=== PATIENT | male | born 1975 | race Caucasian/White ===

== ENCOUNTER 2018-01-13 16:44 | Inpatient (IN) | payer OTHER ==
[~2018-01-13] VITALS: Ht 170.2 cm; Wt 84.4 kg
[2018-01-13] MEDS ORDERED: LIDOCAINE 2% (UROJET) 10 ML JELLY MM ONE ×2 (17:00→17:05)
[2018-01-13] MEDS ORDERED: IV NORMAL SALINE 1000 ML BAG IV ONE (17:15)
[2018-01-13] MEDS ORDERED: LORAZEPAM 0.5 MG TABLET PO ONE (17:15)
[2018-01-13] MEDS ORDERED: LORAZEPAM 1 MG TABLET ONE (17:17)
[2018-01-13 17:23] LABS: *BILIRUBIN,URIN NEGATIVE (NEGATIVE); *BLOOD, URINE 2+ (NEGATIVE); *COLOR,URINE YELLOW (YELLOW); *KETONES,URINE NEGATIVE (NEGATIVE); *PROTEIN,URINE 2+ (NEGATIVE); LEUKOCYTE ESTERASE ,URINE NEGATIVE (NEGATIVE); NITRITE, URINE NEGATIVE (NEGATIVE); PH,URINE 7.5 (5.0-8.0); UGLUCOSE NEGATIVE (NEGATIVE)
[2018-01-13 17:24] LABS: BASOPHILS # (AUTO) 0.1 K/uL (0.0-8.0); BASOPHILS % (AUTO) 1.2 % (0.0-2.0); EOSINOPHILS # (AUTO) 0.1 K/uL (0.0-0.7); EOSINOPHILS % (AUTO) 0.6 % (0.0-7.0); HEMATOCRIT 50.3 % (36.7-47.1); HEMOGLOBIN 17.4 g/dL (12.5-16.3); LYMPHOCYTES # (AUTO) 2.3 K/uL (20.0-40.0); LYMPHOCYTES % (AUTO) 23.3 % (20.5-51.5); MEAN CORPUSCULAR HEMOGLOBIN 32.5 uug (23.8-33.4); MEAN CORPUSCULAR HGB CONC 35 g/dL (32.5-36.3); MEAN CORPUSCULAR VOLUME 93.9 fL (73.0-96.2); MONOCYTES # (AUTO) 0.7 K/uL (2.0-10.0); MONOCYTES % (AUTO) 7.4 % (0.0-11.0); NEUTROPHILS # (AUTO) 6.7 K/uL (1.8-8.9); NEUTROPHILS % (AUTO) 67.5 % (38.5-71.5); PLATELET COUNT (AUTO) 216 K/uL (152-348); RED BLOOD CELL COUNT(AUTO) 5.36 MIL/uL (4.06-5.63); WHITE BLOOD COUNT (AUTO) 9.9 K/uL (3.6-10.2)
[2018-01-13 17:31] LABS: CREATININE 1.1 mg/dL (0.6-1.3); POTASSIUM 3.6 mmol/L (3.5-5.1)
[2018-01-13 17:33] LABS: *CLARITY,URINE SLIGHTLY HAZY (CLEAR)
[2018-01-13 17:35] LABS: MUCUS,URINE MODERATE /LPF (0-FEW); RBC,URINE 50-80 /HPF (0-3); WBC,URINE 0-3 /HPF (0-3)
[2018-01-13] MEDS ORDERED: KETOROLAC TROMETHAMINE 30 MG INJ ONE (17:42)
[2018-01-13] MEDS ORDERED: ONDANSETRON 4 MG/2 ML VIAL ONE (17:42)
[2018-01-13] MEDS ORDERED: KETOROLAC TROMETHAMINE 30 MG INJ IVP ONE (17:45)
[2018-01-13] MEDS ORDERED: ONDANSETRON 4 MG/2 ML VIAL IV ONE (17:45)
[2018-01-13 17:47] LABS: BILIRUBIN,TOTAL 0.4 mg/dL (0.2-1.0); TOTAL PROTEIN, SERUM 7.7 g/dL (6.4-8.2)
[2018-01-13] MEDS ORDERED: MORPHINE SULFATE 4 MG/1 ML DISP.SYRIN ONE (18:14)
[2018-01-13] MEDS ORDERED: MORPHINE SULFATE 4 MG/1 ML DISP.SYRIN IV ONE (18:15)
--- NOTE | 2018-01-13 19:10 | NUR ---
REPORT TAKEN FROM HYACINTH FLEMING. ASSUMING PT CARE AT THIS TIME.
[2018-01-13] MEDS ORDERED: LORAZEPAM 2 MG/1 ML VIAL IV ONE ×2 (19:30→22:45)
[2018-01-13] MEDS ORDERED: IV NS 1000 ML 1,000 ML IV ONE (19:30)
[2018-01-13] MEDS ORDERED: LORAZEPAM 2 MG/1 ML VIAL ONE ×2 (19:36→22:14)
--- NOTE | 2018-01-13 19:40 | NUR ---
PT TAKEN TO RADIOLOGY VIA GURNEY. NO DISTRESS NOTED.
--- NOTE | 2018-01-13 20:16 | NUR ---
PT BACK IN ROOM FROM CT. NO ACUTE EVENTS.
--- NOTE | 2018-01-13 20:36 | NUR ---
PT RESTING IN BED W/ EYES CLOSED. NO ACUTE DISTRESS NOTED.
--- NOTE | 2018-01-13 21:22 | NUR ---
PT C/O INCREASED PAID. MD AWARE. PT CURRENTLY DOZING INTERMITTENTLY, AND REQUIRED SUPPLEMENTAL O2 FOR DESATURATION TO 90% WHILE SLEEPING.
--- NOTE | 2018-01-13 22:10 | NUR ---
AMOS DISCONTINUED PER DR LOCKHART.
--- NOTE | 2018-01-13 22:19 | NUR ---
DR LOCKHART AT BEDSIDE FOR EVAL.
--- NOTE | 2018-01-13 22:37 | NUR ---
REPORT GIVEN TO HYACINTH SMITH.
[2018-01-13] MEDS ORDERED: ACETAMINOPHEN 325 MG TABLET PO PRN (23:15)
[2018-01-13] MEDS ORDERED: MAGNESIUM HYDROXIDE 30 ML LIQUID UDC PO PRN (23:15)
[2018-01-13] MEDS ORDERED: Z GUARD REMEDY PASTE 57 GM TUBE TOP PRN (23:15)
--- NOTE | 2018-01-13 23:23 | NUR ---
Pt. admitted to TELE, under care of Dr. LOCKHART Belongs List completed
--- NOTE | 2018-01-13 23:27 | NUR ---
PT ALERT AWAKE IN NO ACUTE DISTRESS. BIT TAPPER SHOWING SINUS TACHY AT 107 BPM. ABLE TO MAKE NEEDS KNOWN. C/O PAIN 9/10 TO RIGHT ABDOMEN/LOW BACK AREA WITH SOME NAUSEA. PT TO START ON IV FLUIDS PER MD. CURRENTLY ON 2L/MIN VIA N/C. BP 133/80 P 107 R 20 TEMP 98.3 PAIN 9 O2 96%. WILL CONTINUE TO MONITOR. CALL LIGHT WITHIN REACH.
[2018-01-13 23:28] VITALS: BP 133/80
[2018-01-13] MEDS ORDERED: METOPROLOL SUCCINATE XL 50 MG TAB.SR.24H PO ONE (23:30)
[2018-01-14] MEDS: HYDROCODONE/APAP 5-325MG TABLET PO PRN ×2 (00:08→08:41)
[2018-01-14] MEDS: ONDANSETRON 4 MG/2 ML VIAL IV PRN ×3 (00:09→21:49)
[2018-01-14] MEDS: IV 1/2NS 1000 ML 1,000 ML IV PRN ×4 (00:27→22:41)
[2018-01-14] MEDS ORDERED: FOLIC ACID 5 MG/ML VIAL IV ONE (00:36)
[2018-01-14] MEDS ORDERED: THIAMINE HCL 200 MG/2 ML VIAL ONE (00:36)
[2018-01-14] MEDS: LORAZEPAM 0.5 MG TABLET PO PRN ×3 (00:59→14:23)
[2018-01-14] MEDS: ZOLPIDEM 5 MG TABLET PO PRN ×2 (00:59→22:46)
[2018-01-14] MEDS: FOLIC ACID 1 MG in IV DEXTROSE 5% 50 ML IV SCH ×2 (01:01→23:16)
[2018-01-14] MEDS: THIAMINE HCL INJ 100 MG in IV DEXTROSE 5% 50 ML IV SCH ×2 (01:35→22:41)
[2018-01-14 03:53] VITALS: BP 130/65
--- NOTE | 2018-01-14 06:00 | NUR ---
PT IN ROOM ASLEEP MAINTAINING IV FLUIDS. DENIES ANY PAIN OR DISCOMFORT AT THIS TIME. CARBONATION TESTER SINUS RHYTHM. OXYGEN MAINTAINED AT 2L/MIN. V/S ARE WNL. WILL CONTINUE TO MONITOR. CALL LIGHT AND URINAL WITHIN REACH.
[2018-01-14 06:44] LABS: BASOPHILS # (AUTO) 0.1 K/uL (0.0-8.0); BASOPHILS % (AUTO) 0.8 % (0.0-2.0); EOSINOPHILS # (AUTO) 0.1 K/uL (0.0-0.7); EOSINOPHILS % (AUTO) 1.7 % (0.0-7.0); HEMATOCRIT 44.4 % (36.7-47.1); HEMOGLOBIN 15.2 g/dL (12.5-16.3); LYMPHOCYTES # (AUTO) 1.8 K/uL (20.0-40.0); MEAN CORPUSCULAR HEMOGLOBIN 32.6 uug (23.8-33.4); MEAN CORPUSCULAR HGB CONC 34 g/dL (32.5-36.3); MEAN CORPUSCULAR VOLUME 94.8 fL (73.0-96.2); MONOCYTES # (AUTO) 0.5 K/uL (2.0-10.0); MONOCYTES % (AUTO) 8.5 % (0.0-11.0); NEUTROPHILS # (AUTO) 3.8 K/uL (1.8-8.9); PLATELET COUNT (AUTO) 172 K/uL (152-348); RED BLOOD CELL COUNT(AUTO) 4.68 MIL/uL (4.06-5.63); WHITE BLOOD COUNT (AUTO) 6.3 K/uL (3.6-10.2)
[2018-01-14 07:01] LABS: BILIRUBIN,TOTAL 0.6 mg/dL (0.2-1.0); PHOSPHOROUS 3.1 mg/dL (2.5-4.9); POTASSIUM 3.5 mmol/L (3.5-5.1); TOTAL PROTEIN, SERUM 6.3 g/dL (6.4-8.2)
--- NOTE | 2018-01-14 08:00 | NUR ---
AWAKE ALERT COOPERATE WELL NO ACUTE DISTRESS C/O OF RT FLANK PAIN AND NAUSEA THI AM MED PRN GIVEN ORDER ,RESTING WELL WITH CALL LIGHT IN REACH
--- NOTE | 2018-01-14 09:00 | NUR ---
DR LOCKHART SEEN PATIENT AND LAB RESULT AND ORDER NEW PAIN MED FOR HIM
[2018-01-14] MEDS ORDERED: KETOROLAC TROMETHAMINE 30 MG INJ IM PRN (09:15)
[2018-01-14] MEDS: METOPROLOL SUCCINATE XL 50 MG TAB.SR.24H PO SCH (09:28)
[2018-01-14] MEDS ORDERED: KETOROLAC TROMETHAMINE 30 MG INJ IVP PRN (10:15)
[2018-01-14 11:07] VITALS: BP 151/85
[2018-01-14] MEDS ORDERED: [UNRECOGNIZED DRUG - OTHER] PO (12:46)
[2018-01-14] MEDS ORDERED: GABA800T2 PO (12:46)
[2018-01-14] MEDS ORDERED: BUPR300T52 PO (12:46)
--- NOTE | 2018-01-14 14:00 | NUR ---
DR LOCKHART WAS CALL REGARDING PATIENT REQUEST MORE OFTEN OF ATIVAN FOR ANXIETY AND NEW ORDER IN CHART
[2018-01-14 15:43] VITALS: BP 142/69
[2018-01-14] MEDS: KETOROLAC TROMETHAMINE 30 MG INJ IVP PRN ×2 (15:43→21:49)
--- NOTE | 2018-01-14 17:30 | NUR ---
STABLE HEMODYNAMIC STATUS NO ACUTE DISTRESS ,PAIN AND ANXIETY UNDER CONTROL SAFETY MEASURE PROVIDED CALL LIGHT IN REACH
--- NOTE | 2018-01-14 19:20 | NUR ---
RECEIVED PT SLEEPING IN BED. NO S/S OF DISTRESS AT THIS TIME. IVF 1/2NS INFUSING AT 150 CC/HR.
[2018-01-14] MEDS ORDERED: LEVO137T24 PO (19:37)
[2018-01-14 20:00] VITALS: BP 145/73
[2018-01-14] MEDS: LORAZEPAM 1 MG TABLET PO PRN (20:00)
--- NOTE | 2018-01-14 21:35 | NUR ---
Received patient from ingredient scaler nurse at 2135. Patient in stable condition with no acute distress. Denies SOB. Patient complaining of lower back pain 02/06. Will administer pain med per MD order & re assess. Pertinent assessment completed. IV fluids running through right forearm. No s/s of infiltration or swelling at IV site. Call light within reach. Will continue to monitor.
[2018-01-15] MEDS: KETOROLAC TROMETHAMINE 30 MG INJ IVP PRN ×4 (04:23→23:20)
[2018-01-15 04:25] VITALS: BP 115/59
[2018-01-15] MEDS: LORAZEPAM 1 MG TABLET PO PRN ×4 (05:45→20:23)
--- NOTE | 2018-01-15 05:47 | NUR ---
Patient compliant with care. All needs attended to promptly. Medications administered as per MD order. Vital signs within range. Pain management provided. Safety measures implemented. Call light within reach of patient. Will endorse to day shift nurse.
[2018-01-15] MEDS: IV 1/2NS 1000 ML 1,000 ML IV PRN ×3 (07:12→23:20)
--- NOTE | 2018-01-15 07:30 | NUR ---
Received pt in bed sleeping but easily arousable to name. Pt is able to verbalize needs.
[2018-01-15] MEDS: ONDANSETRON 4 MG/2 ML VIAL IV PRN ×2 (07:58→17:47)
[2018-01-15] MEDS: HYDROCODONE/APAP 5-325MG TABLET PO PRN ×3 (08:00→21:11)
[2018-01-15] MEDS: METOPROLOL SUCCINATE XL 50 MG TAB.SR.24H PO SCH (08:03)
--- NOTE | 2018-01-15 09:00 | NUR ---
New IV 22g started on the left hand by student nurse with nurse closely monitoring. One time attempt, Pt tolerated procedure well
[2018-01-15 11:28] VITALS: BP 141/73
[2018-01-15] MEDS: FOLIC ACID 1 MG TABLET PO SCH (11:31)
[2018-01-15] MEDS: THIAMINE HCL 100 MG TABLET PO SCH (11:32)
[2018-01-15 14:57] VITALS: BP 135/76
[2018-01-15] MEDS ORDERED: Medication Not On Formulary EA (Bupropion Hcl (Wellbutrin Xl) 300 MG) PO SCH (16:00)
[2018-01-15] MEDS: buPROPion XL 150 MG TAB.SR.24H PO SCH (16:18)
[2018-01-15] MEDS: GABAPENTIN 400 MG CAPSULE PO SCH (16:18)
[2018-01-15] MEDS ORDERED: Medication Not On Formulary EA (Gabapentin 800 MG) PO SCH (17:00)
--- NOTE | 2018-01-15 18:46 | NUR ---
Pt has been compliant with all medications and nursing care. Pt noted to take interest in personal hygiene and took a shower. today's plan included pain management and controlling anxiety levels
--- NOTE | 2018-01-15 19:30 | NUR ---
Patient lying in bed comfortably at start of shift with no acute distress. Vital signs within range. Pertinent assessment completed. Able to make all his needs known. Patient denies chest pain & SOB. IV fluids running into right hand with no signs of infiltration & swelling. Bed in low position & locked. Call light within reach. Will continue to monitor through shift.
[2018-01-15 19:40] VITALS: BP 134/61
[2018-01-15] MEDS: ZOLPIDEM 5 MG TABLET PO PRN (21:50)
[2018-01-16 03:42] VITALS: BP 107/55
[2018-01-16] MEDS: IV 1/2NS 1000 ML 1,000 ML IV PRN (06:12)
--- NOTE | 2018-01-16 06:28 | NUR ---
Patient slept well through the night. Compliant with care. No acute distress noted. Vital signs within range. All needs attended to. Pain management provided. Safety measures maintained. Call light within reach. Will endorse to day shift nurse.
[2018-01-16] MEDS ORDERED: LEVOTHYROXINE SODIUM 137 MCG TABLET PO SCH (07:00)
--- NOTE | 2018-01-16 07:29 | NUR ---
Received pt awake, noted pt brushing his teeth. Pt asked for pain medication and Ativan. No immediate s/s of SOB or respiratory distress
[2018-01-16] MEDS: KETOROLAC TROMETHAMINE 30 MG INJ IVP PRN (07:35)
[2018-01-16] MEDS: LORAZEPAM 1 MG TABLET PO PRN ×2 (07:35→11:29)
[2018-01-16] MEDS: GABAPENTIN 400 MG CAPSULE PO SCH ×2 (08:37→12:03)
[2018-01-16] MEDS: FOLIC ACID 1 MG TABLET PO SCH (08:37)
[2018-01-16] MEDS: THIAMINE HCL 100 MG TABLET PO SCH (08:37)
[2018-01-16] MEDS: buPROPion XL 150 MG TAB.SR.24H PO SCH (08:37)
[2018-01-16] MEDS: METOPROLOL SUCCINATE XL 50 MG TAB.SR.24H PO SCH (08:38)
[2018-01-16] MEDS: ONDANSETRON 4 MG/2 ML VIAL IV PRN (11:29)
[2018-01-16] MEDS: HYDROCODONE/APAP 5-325MG TABLET PO PRN (11:30)
--- NOTE | 2018-01-16 11:47 | NUR ---
Pt has discharge orders from Dr Delgadillo. Pt has been able to understand discharge orders, VS stable. Pt will be picked up by a staff member from his detox facility. Pt understands the importance of making an appointment with his PCP. Personal belonging accounted and signed for.
[2018-01-16 11:51] VITALS: BP 160/80
--- NOTE | 2018-01-16 13:00 | NUR ---
Pt left the unit accompanied by a staff member from his detox facility. IV and ID band removed. Personal belongings, discharge papers with prescription were taken with him. Informed the pt on the importance to follow with his PCP and to stay with his detox program. No immediate s/s of SOB, pain, distress or discomfort noted. All scheduled and PRN given before discharge
== END 2018-01-16 13:00 | disposition home or self-care (01) | DRG 557 ==
LOC: ER 16:47 → TELE 23:15 → MED 01-14 18:22
PROVIDERS: ADMIT Internal Medicine; ATTEND Internal Medicine
PROC: 0T9B70Z Drainage of Bladder with Drainage Device, Via Natural or Artificial Opening (ICD-10-PCS; principal; 2018-01-13)
DX: M62.82 Rhabdomyolysis (principal); G93.41 Metabolic encephalopathy; F10.239 Alcohol dependence with withdrawal, unspecified; Y90.9 Presence of alcohol in blood, level not specified; F41.9 Anxiety disorder, unspecified; E03.9 Hypothyroidism, unspecified; Z87.442 Personal history of urinary calculi; E86.0 Dehydration; X30.XXXA Exposure to excessive natural heat, initial encounter; Y93.9 Activity, unspecified; Y92.89 Other specified places as the place of occurrence of the external cause; K76.0 Fatty (change of) liver, not elsewhere classified; Z59.0 Homelessness; I10 Essential (primary) hypertension; K80.20 Calculus of gallbladder without cholecystitis without obstruction; R33.9 Retention of urine, unspecified
CPT/HCPCS: 36415; 83735; 84100; 85025; 93005; A4663; J1885; J2060; J2270; J2405; J3411; J3490; J7030; J7060

== ENCOUNTER 2018-06-02 14:42 | Emergency (ER) | payer MEDICAID, OTHER ==
[~2018-06-02] VITALS: Ht 170.2 cm; Wt 83.9 kg
[~2018-06-02 14:42] MED LIST: BUPR300T52 PO; GABA800T3 PO; LEVO137T24 PO
[2018-06-02] MEDS ORDERED: ONDANSETRON 4 MG/2 ML VIAL ONE ×2 (15:09→16:19)
[2018-06-02] MEDS ORDERED: PANTOPRAZOLE SODIUM 40 MG VIAL ONE (15:09)
[2018-06-02] MEDS ORDERED: IV NORMAL SALINE 1000 ML BAG IV ONE (15:15)
[2018-06-02] MEDS ORDERED: PANTOPRAZOLE SODIUM 40 MG VIAL IV ONE (15:15)
[2018-06-02] MEDS ORDERED: ONDANSETRON 4 MG/2 ML VIAL IV ONE ×2 (15:15→16:30)
[2018-06-02 15:24] LABS: BASOPHILS % (AUTO) 0.7 % (0.0-2.0); EOSINOPHILS # (AUTO) 0.2 K/uL (0.0-0.7); EOSINOPHILS % (AUTO) 3.1 % (0.0-7.0); HEMATOCRIT 49.7 % (36.7-47.1); HEMOGLOBIN 17.5 g/dL (12.5-16.3); LYMPHOCYTES # (AUTO) 2.2 K/uL (20.0-40.0); LYMPHOCYTES % (AUTO) 31.9 % (20.5-51.5); MEAN CORPUSCULAR HEMOGLOBIN 33.4 uug (23.8-33.4); MEAN CORPUSCULAR HGB CONC 35 g/dL (32.5-36.3); MONOCYTES # (AUTO) 0.6 K/uL (2.0-10.0); NEUTROPHILS # (AUTO) 3.7 K/uL (1.8-8.9); NEUTROPHILS % (AUTO) 55.3 % (38.5-71.5); PLATELET COUNT (AUTO) 214 K/uL (152-348); RED BLOOD CELL COUNT(AUTO) 5.23 MIL/uL (4.06-5.63); WHITE BLOOD COUNT (AUTO) 6.8 K/uL (3.6-10.2)
[2018-06-02 15:34] LABS: POTASSIUM 3.7 mmol/L (3.5-5.1)
--- NOTE | 2018-06-02 15:37 | NUR ---
EKG/LABS DONE, MEDS ADMIN, MONITOR SHOWS NSR/FA5=514% ON ROOM AIR.
[2018-06-02 15:43] LABS: BILIRUBIN,DIRECT 0.1 mg/dL (0.0-0.2); BILIRUBIN,TOTAL 0.2 mg/dL (0.2-1.0); TOTAL PROTEIN, SERUM 7.6 g/dL (6.4-8.2)
--- NOTE | 2018-06-02 16:46 | NUR ---
MSE COMPLETED, PT STATED HE HAD NO NAUSEA, IV D/C'D INTACT, RX X4/ACI GIVEN. PT AMBULATED W/O DIFF, TOOK ALL BELONGIONGS.
[2018-06-02 16:48] VITALS: BP 155/92
== END 2018-06-02 16:40 | disposition home or self-care (01) ==
LOC: ER 14:44
DX: F10.239 Alcohol dependence with withdrawal, unspecified (principal); I10 Essential (primary) hypertension; Z79.899 Other long term (current) drug therapy; F32.9 Major depressive disorder, single episode, unspecified
CPT/HCPCS: 36415; 71045; 80048; 80076; 83690; 84484; 85025; 85730; 93005; 96374; 96375; 96376; 99284; C9113; J2405; 70030-TC; A4663; J7030

== ENCOUNTER 2018-08-10 22:59 | Emergency (ER) | payer MEDICAID ==
[~2018-08-10] VITALS: Ht 170.2 cm; Wt 84.8 kg
[~2018-08-10 22:59] MED LIST changes: +GABA800T11 PO; -GABA800T3 PO
[2018-08-10] MEDS ORDERED: TRAZ150T75 PO (23:09)
[2018-08-10] MEDS ORDERED: TOPI50TA PO (23:09)
[2018-08-10] MEDS ORDERED: LORAZEPAM 2 MG/1 ML VIAL IV ONE (23:30)
[2018-08-10] MEDS ORDERED: IV NORMAL SALINE 1000 ML BAG IV ONE (23:30)
[2018-08-10] MEDS ORDERED: LORAZEPAM 2 MG/1 ML VIAL ONE (23:59)
--- NOTE | 2018-08-11 00:23 | NUR ---
IV removed. Catheter intact and site benign. Pressure and 4x4 gauze applied to site. No bleeding noted.
--- NOTE | 2018-08-11 00:24 | NUR ---
Patient discharged to home in stable conditon. Written and verbal after care instructions given. Patient verbalizes understanding of instructions. Pt left ER in steady gait w girlfriend who will drive home. All belongings with pt. VSS. NAD noted.
[2018-08-11 00:25] VITALS: BP 136/81
== END 2018-08-11 00:27 | disposition home or self-care (01) ==
LOC: ER 23:01
DX: F10.20 Alcohol dependence, uncomplicated (principal); I10 Essential (primary) hypertension; Z88.8 Allergy status to other drugs, medicaments and biological substances; Z79.899 Other long term (current) drug therapy; Y90.9 Presence of alcohol in blood, level not specified
CPT/HCPCS: 96374; 99283; J2060; A4663; J7030

== ENCOUNTER 2018-08-17 10:56 | Emergency (ER) | payer MEDICAID ==
[~2018-08-17] VITALS: Ht 170.2 cm; Wt 86.2 kg
[~2018-08-17 10:56] MED LIST changes: +TOPI50TA PO; +TRAZ150T75 PO
[2018-08-17] MEDS ORDERED: METO50TA7 PO (11:11)
[2018-08-17] MEDS ORDERED: LORAZEPAM 0.5 MG TABLET PO ONE (11:15)
[2018-08-17] MEDS ORDERED: LORAZEPAM 1 MG TABLET ONE (11:19)
--- NOTE | 2018-08-17 12:40 | NUR ---
DR SHARMA MADE PATIENT AWARE OF TEST RESULTS WILL BE DC HOME
--- NOTE | 2018-08-17 12:45 | NUR ---
Patient discharged to home in stable conditon. Written and verbal after care instructions given. Patient verbalizes understanding of instructions.
[2018-08-17 12:47] VITALS: BP 115/71
== END 2018-08-17 12:48 | disposition home or self-care (01) ==
LOC: ER 10:56
DX: S46.911A Strain of unspecified muscle, fascia and tendon at shoulder and upper arm level, right arm, initial encounter (principal); F10.10 Alcohol abuse, uncomplicated; E03.9 Hypothyroidism, unspecified; Z79.891 Long term (current) use of opiate analgesic; Z79.899 Other long term (current) drug therapy; Z88.8 Allergy status to other drugs, medicaments and biological substances; X50.0XXA Overexertion from strenuous movement or load, initial encounter; Y93.89 Activity, other specified; Y92.89 Other specified places as the place of occurrence of the external cause; Y99.8 Other external cause status
CPT/HCPCS: 73080; A4663

== ENCOUNTER 2018-08-21 10:32 | Emergency (ER) | payer MEDICAID ==
[~2018-08-21] VITALS: Ht 170.2 cm; Wt 72.6 kg
[~2018-08-21 10:32] MED LIST changes: +METO50TA7 PO
[2018-08-21] MEDS ORDERED: ONDANSETRON 4 MG/2 ML VIAL IV ONE (10:45)
[2018-08-21] MEDS ORDERED: IV NORMAL SALINE 1000 ML BAG IV ONE (10:45)
[2018-08-21] MEDS ORDERED: FAMOTIDINE. 20 MG/2 ML VIAL IV ONE ×2 (10:45→10:51)
[2018-08-21] MEDS ORDERED: LORAZEPAM 2 MG/1 ML VIAL IV ONE (10:45)
[2018-08-21] MEDS ORDERED: ONDANSETRON 4 MG/2 ML VIAL ONE (10:51)
[2018-08-21] MEDS ORDERED: LORAZEPAM 2 MG/1 ML VIAL ONE (10:52)
[2018-08-21 11:18] LABS: BASOPHILS # (AUTO) 0.1 K/uL (0.0-8.0); BASOPHILS % (AUTO) 0.8 % (0.0-2.0); EOSINOPHILS # (AUTO) 0.1 K/uL (0.0-0.7); EOSINOPHILS % (AUTO) 1.4 % (0.0-7.0); HEMATOCRIT 46.7 % (36.7-47.1); HEMOGLOBIN 16.3 g/dL (12.5-16.3); LYMPHOCYTES # (AUTO) 2.4 K/uL (20.0-40.0); LYMPHOCYTES % (AUTO) 33.9 % (20.5-51.5); MEAN CORPUSCULAR HEMOGLOBIN 32.8 uug (23.8-33.4); MEAN CORPUSCULAR HGB CONC 35 g/dL (32.5-36.3); MEAN CORPUSCULAR VOLUME 93.7 fL (73.0-96.2); MONOCYTES # (AUTO) 0.7 K/uL (2.0-10.0); NEUTROPHILS # (AUTO) 3.9 K/uL (1.8-8.9); NEUTROPHILS % (AUTO) 53.9 % (38.5-71.5); PLATELET COUNT (AUTO) 215 K/uL (152-348); RED BLOOD CELL COUNT(AUTO) 4.98 MIL/uL (4.06-5.63); WHITE BLOOD COUNT (AUTO) 7.2 K/uL (3.6-10.2)
--- NOTE | 2018-08-21 11:18 | NUR ---
Patient is resting comfortably in bed with eyes closed, NAD
[2018-08-21 11:24] LABS: CREATININE 1.1 mg/dL (0.6-1.3); POTASSIUM 3.7 mmol/L (3.5-5.1)
[2018-08-21 11:29] LABS: BILIRUBIN,DIRECT 0.1 mg/dL (0.0-0.2); BILIRUBIN,TOTAL 0.3 mg/dL (0.2-1.0)
--- NOTE | 2018-08-21 12:06 | NUR ---
PO challenge started.
--- NOTE | 2018-08-21 12:17 | NUR ---
Patient ambulated to the bathroom to void. Patient passed the po challenge. notified.
--- NOTE | 2018-08-21 12:37 | NUR ---
IV removed. Catheter intact and site benign. Pressure and 4x4 gauze applied to site. No bleeding noted. Patient discharged to home in stable conditon. Written and verbal after care instructions given to patient and spouse (girlfriend). Patient and family verbalized understanding of instructions.
== END 2018-08-21 12:47 | disposition home or self-care (01) ==
LOC: ER 10:32
DX: F10.20 Alcohol dependence, uncomplicated (principal); F10.239 Alcohol dependence with withdrawal, unspecified; R11.2 Nausea with vomiting, unspecified; E03.9 Hypothyroidism, unspecified; Z88.8 Allergy status to other drugs, medicaments and biological substances; Z79.891 Long term (current) use of opiate analgesic; Z79.899 Other long term (current) drug therapy; Y90.8 Blood alcohol level of 240 mg/100 ml or more
CPT/HCPCS: 36415; 80048; 80076; 85025; 96374; 96375; 99283; G0480; J2060; J2405; J3490; A4663; J7030

== ENCOUNTER 2018-11-22 12:33 | Emergency (ER) | payer SELFPAY ==
[~2018-11-22] VITALS: Ht 167.6 cm; Wt 86.6 kg
--- NOTE | 2018-11-22 13:01 | NUR ---
PT WAS D/C'd TO HOME AFTER DR FUENTES EVALUATION. D/C INSTRUCTIONS GIVEN TO THE PT.
[2018-11-22 13:02] VITALS: BP 139/82
== END 2018-11-22 13:03 | disposition home or self-care (01) ==
LOC: ER 12:33
DX: R10.9 Unspecified abdominal pain (principal); E03.9 Hypothyroidism, unspecified; Z88.8 Allergy status to other drugs, medicaments and biological substances; Z79.899 Other long term (current) drug therapy
CPT/HCPCS: A4663

== ENCOUNTER 2023-01-26 01:38 | Emergency (ER) | payer OTHER ==
--- NOTE | 2023-01-26 03:31 | NUR ---
Pt not in waiting room.
== END 2023-01-26 03:32 | disposition left against medical advice (07) ==
LOC: ER 01:38
DX: Z53.21 Procedure and treatment not carried out due to patient leaving prior to being seen by health care provider (principal)